=== PATIENT | male | born 1960 | race African-American/Black ===

== ENCOUNTER 2022-08-01 07:04 | Emergency (ER) | payer MEDICAID, MEDICARE, OTHER ==
[~2022-08-01] VITALS: Ht 170.2 cm; Wt 69.0 kg
[2022-08-01 08:20] LABS: BASOPHILS % 0.5 % (0.0-2.0); EOSINOPHILS % 0.6 % (0.0-5.0); HEMATOCRIT. 29.9 % (42.0-52.0); HEMOGLOBIN. 9.7 g/dL (14.0-18.0); LYMPHOCYTES % 8.5 % (20.0-50.0); MEAN CORPUSCULAR HEMOGLOBIN 27.9 pg (28.0-32.0); MEAN CORPUSCULAR VOLUME 85.8 fL (80.0-94.0); MEAN PLATELET VOLUME 7.1 fl (7.4-10.4); MONOCYTES % 9.2 % (2.0-8.0); NEUTROPHILS % 81.2 % (40.0-76.0); PLATELET 621 x1000/uL (130-400); RED BLOOD CELL COUNT 3.49 mill/uL (4.7-6.1); RED CELL DISTRIBUTION WIDTH 14.3 % (11.6-14.6)
[2022-08-01 08:39] LABS: CHLORIDE 104 mEq/L (98-107)
[2022-08-01 08:54] LABS: CLARITY URINE CLEAR (CLEAR); COLOR URINE ORANGE (YELLOW); KETONES URINE TRACE (NEGATIVE); LEUKOCYTE ESTERASE URINE TRACE (NEGATIVE); NITRITE URINE NEGATIVE (NEGATIVE); OCCULT BLOOD URINE TRACE (NEGATIVE); PH URINE 5.5 (4.5-8.0); PROTEIN URINE TRACE (NEGATIVE); SPECIFIC GRAVITY URINE 1.021 (1.005-1.030)
[2022-08-01] MEDS ORDERED: LIDOCAINE HCL/PF 1% 10 MG/ML 5ML VIAL INFIL ONE (09:00)
[2022-08-01 10:00] VITALS: BP 126/76
[2022-08-01] MEDS ORDERED: PHENYLEPHRINE 100MCG/ML 10ML VIAL (PRIAPISM) MC ONE (10:00)
== END 2022-08-01 13:31 | disposition home or self-care (01) ==
LOC: ER 07:04
DX: N48.30 Priapism, unspecified (principal)
CPT/HCPCS: 36415; 80053; 81003; 85025; 85660; 99283; J2370; J3490; Z7610